=== PATIENT | male | born 1950 | race Caucasian/White ===

== ENCOUNTER 2020-08-22 04:28 | Day surgery (SDC) | payer OTHER ==
[2020-08-21 08:41] VITALS: BMI 31.7
[2020-08-22] MEDS ORDERED: ONDANSETRON 4 MG/2 ML VIAL IVPUSH PRN (11:47)
[2020-08-22] MEDS ORDERED: oxyCODONE HCL 5 MG TABLET PO PRN (11:47)
[2020-08-22] MEDS ORDERED: MIDAZOLAM HCL 2 MG/2 ML SINGLE DOSE VIAL ONE ×2 (11:48→17:24)
[2020-08-22] MEDS ORDERED: ceFAZolin SODIUM 1 GM VIAL IVPB ONE (11:56)
[2020-08-22] MEDS ORDERED: KETOROLAC TROMETHAMINE 30 MG/1 ML VIAL ONE (12:31)
[2020-08-22] MEDS ORDERED: DESFLURANE GAS 240 ML BOTTLE IH ONE (12:57)
[2020-08-22] MEDS ORDERED: PROPOFOL 20 ML ONE (17:24)
[2020-08-22] MEDS ORDERED: SUCCINYLCHOLINE CHLORIDE 200 MG/10 ML SYRINGE ONE (17:28)
[2020-08-22] MEDS ORDERED: ceFAZolin SODIUM 1 GM VIAL ONE (17:34)
[2020-08-22] MEDS ORDERED: CEFAZOLIN 1 GM/D5W 1 GM/50 ML BAG IVPB SCH (20:00)
[2020-08-22] MEDS ORDERED: ATORVASTATIN CA 40 MG TABLET (FP) PO SCH (22:00)
[2020-08-22] MEDS ORDERED: FINASTERIDE 5 MG TABLET (FP) PO SCH (22:00)
[2020-08-23] MEDS: CEFAZOLIN 1 GM/D5W 1 GM/50 ML BAG IVPB SCH ×2 (01:31→09:18)
[2020-08-23 07:09] VITALS: BP 132/82; PULSE 80; TEMP 99.5
[2020-08-23] MEDS ORDERED: TAMSULOSIN HCL 0.4 MG CAP PO SCH (08:30)
[2020-08-23] MEDS ORDERED: LOSARTAN POTASSIUM 50 MG TABLET PO SCH (10:00)
[2020-08-23] MEDS ORDERED: ALLOPURINOL 300 MG TABLET (FP) PO SCH (10:00)
== END 2020-08-23 14:24 | disposition home or self-care (01) ==
LOC: JASUSAT 04:28 → JASU-SURG 04:28 → J6S 16:07 → JASUSAT 08-23 14:24
PROVIDERS: ATTEND Urology
PROC: 0VT08ZZ Resection of Prostate, Via Natural or Artificial Opening Endoscopic (ICD-10-PCS; principal; 2020-08-22 11:00)
PROC: 3E1K88Z Irrigation of Genitourinary Tract using Irrigating Substance, Via Natural or Artificial Opening Endoscopic (ICD-10-PCS; 2020-08-22 11:00)
DX: N40.1 Benign prostatic hyperplasia with lower urinary tract symptoms (principal); N13.9 Obstructive and reflux uropathy, unspecified; N32.89 Other specified disorders of bladder; R35.0 Frequency of micturition; R39.15 Urgency of urination; Y83.8 Other surgical procedures as the cause of abnormal reaction of the patient, or of later complication, without mention of misadventure at the time of the procedure; Y82.8 Other medical devices associated with adverse incidents; Y92.530 Ambulatory surgery center as the place of occurrence of the external cause
CPT/HCPCS: 87086; 88108; 88302-TC; 88305-TC; 94010; 94760